=== PATIENT | female | born 1960 | race Caucasian/White ===

== ENCOUNTER 2019-05-15 15:17 | Emergency (ER) | payer SELFPAY ==
[~2019-05-15] VITALS: Ht 162.6 cm; Wt 80.0 kg
[2019-05-15] MEDS ORDERED: LORAZEPAM 1MG TABLET PO ONE (16:00)
[2019-05-15 18:00] VITALS: BP 155/52
== END 2019-05-15 18:01 | disposition home or self-care (01) ==
LOC: ER 15:27
DX: F41.9 Anxiety disorder, unspecified (principal); M79.10 Myalgia, unspecified site
CPT/HCPCS: 99284